=== PATIENT | female | born 1950 | race Caucasian/White ===

== ENCOUNTER 2016-07-14 13:42 | Emergency (ER) | payer MEDICARE, BC ==
[2016-07-15] MEDS ORDERED: NORCO1 TA2 PO (13:53)
[2016-07-15] MEDS ORDERED: ZOL50 PO (13:54)
[2016-07-15] MEDS ORDERED: ATEN50 PO (13:54)
[2016-07-15] MEDS ORDERED: ZOFRAN4 PO (13:54)
== END 2016-07-14 16:45 | disposition home or self-care (01) ==
LOC: ER 13:42
DX: S52.502A Unspecified fracture of the lower end of left radius, initial encounter for closed fracture (principal); I10 Essential (primary) hypertension; Z88.1 Allergy status to other antibiotic agents; W19.XXXA Unspecified fall, initial encounter
CPT/HCPCS: 73100-LT; 96374; 96375; 99284; J1170; J2405

== ENCOUNTER 2016-07-15 10:08 | Emergency (ER) | payer MEDICARE, BC ==
--- NOTE | ~2016-07-15 | HP ---
History And Physical [facility] [address] [place]. [address] NAME: KAVYA FISHER : 48 STATUS : DEP ER PAT#: [id number] AGE: 66 ADM/REG DATE : 07/15/16 MR#: [id number] REPORT SERV DATE: 07/16/16 DICTATED BY: JOHN BEAVER DATE: 07/15/16 REPORT STATUS : Draft TRANSCRIBED BY: MODAlicia DATE: 07/15/16 DATE OF ADMISSION: 07/15/2016 REASON: Left wrist fracture. 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 She was in her usual state of health until yesterday 07/14/2016. While helping the [facility] take down [place] flags and crosses for the festivities, she tripped and fell over a stack of classes landing backwards on an outstretched left wrist. She noted immediate pain and deformity of her wrist and was seen at [facility] where x-rays were taken showing an impacted and dorsally angulated distal radius fracture. She was placed in a sugar-tong splint and is to contact my office today to set up a followup appointment. However, overnight she started experiencing burning pain in the hand with numbness at the fracture site as well as shortness of breath. She has a history of right lower extremity DVT 4 weeks after a knee meniscal meniscectomy and this was complicated by a PE. She was brought to this hospital ER, where workup revealed no evidence of PE based on CTA. Because she was n.p.o. since this morning and I was available, I opted to see her in the ER and proceed with surgery. She is very thankful and by arrangements, her pain was greatly improved with the help of a regional block administered by the Anesthesia Department in the preop holding area. No previous injuries to her left wrist, and she does have a history of rheumatoid arthritis, but has been off Remicade now for several years and not had any flare up. PAST MEDICAL HISTORY: 1. Hypertension. 2. Mitral valve prolapse. 3. Mild GERD. 4. Rheumatoid arthritis, she has been off Remicade without any flare ups. PAST SURGICAL HISTORY: 1. Lumbar laminectomy, diskectomy, and fusion by Dr. Gaona in [place]. 2. Neck fusion. 3. Right knee meniscectomy complicated by right lower extremity DVT and PE four weeks later. 4. Hysterectomy and salpingectomy with appendectomy. 5. Tonsillectomy and adenoidectomy. 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 She is 34 years to her , [place]. No children. She drinks an occasional beer and gin and tonic. She denies tobacco or recreational drugs. FAMILY HISTORY: Noncontributory. REVIEW OF SYSTEMS: Some hand and base of thumb pain, some joint pain and spine pain, all in keeping with musculoskeletal symptoms of aging, otherwise no shortness of breath, fever, chills, and she History And Physical [address] [address] NAME: KAVYA FISHER : 48 STATUS : DEP ER PAT#: [id number] AGE: 66 ADM/REG DATE : 07/15/16 MR#: [id number] REPORT SERV DATE: 07/16/16 DICTATED BY: JOHN BEAVER DATE: 07/15/16 REPORT STATUS : Draft TRANSCRIBED BY: ESCOBAR DATE: 07/15/16 has not had any rheumatoid flare ups since being off Remicade last year. See past medical history, past surgical history, otherwise negative. ALLERGIES: SHE IS ALLERGIC TO MACROBID. PRESENT MEDICATIONS: Tenormin 50 mg daily, Zoloft 50 mg p.o. daily, hydrocodone 7.5/325 one p.o. q.6 hours p.r.n. severe pain, and Zofran 4 mg p.o. q.6 hours p.r.n. nausea. PHYSICAL EXAMINATION: GENERAL: Pleasant, cooperative, 66-year-old female, lying in bed, reported to be in much better condition as compared to that experienced an hour ago prior to her en bloc. She states that for the first time in 24 hours, she has had relief in symptoms. Appropriate mood and behavior. VITAL SIGNS: Height 5 feet 6 inches, weight 140 pounds, blood pressure 109/54, pulse 54, and SaO2 100% on room air. HEENT: Normocephalic, atraumatic. COR: Regular rate and rhythm without murmurs, rubs, gallops. LUNGS: Clear to auscultation. ABDOMEN: Soft, nontender. MUSCULOSKELETAL: The right shoulder, elbow, wrist, and all fingers with functional range of motion. The right thumb has some adduction deformity and minimal tenderness over the thumb CMC joint but negative grind test. Right hand is neurovascularly intact. LEFT UPPER EXTREMITY: Has had recent block on the arm, is insensate without motor function. She can barely move her shoulder and the arm is in a sugar-tong splint. Fingers are pink and viable but has no sensation. The sugar-tong splints was taken down. There is bruising in the wrist, but no open wounds. There is an obvious silver-fork deformity at the fracture site. The TLS spine has well-healed incisions. Both hips, knees, and ankles have no gross deformities. IMAGING: X-rays multiple views left wrist taken at [facility] yesterday, 07/14/2016 shows the distal radius metaphyseal fracture with impaction and dorsal angulation as well as slight dorsal translation. There was significant thumb CMC arthritic changes Eaton stage IV. IMPRESSION: 1. Left distal radius fracture sustained on 07/14/2016 with displacement. 2. History of rheumatoid arthritis. 3. Possible irritation to median nerve responsible for burning pain in wrist over the past 24 hours since fracture. PLAN: Possible options were discussed. I have offered Kavya surgery in the form of open reduction and internal fixation of the wrist fracture. This would include a volar plate and screws. The risk of infection, bleeding, worsening pain, nerve artery or tendon damage, , stroke, heart attack were all discussed. Alternative options to include closed reduction, splinting followed by monitors with x-rays and eventually placement in cast were discussed, but Kavya is not interested in following with nonsurgical treatment. History And Physical [address] [place]. [address] NAME: KAVYA FISHER : 48 STATUS : DEP [facility]#: [id number] AGE: 66 ADM/REG DATE : 07/15/16 MR#: [id number] REPORT SERV DATE: 07/16/16 DICTATED BY: JOHN BEAVER DATE: 07/15/16 REPORT STATUS : Draft TRANSCRIBED BY: ESCOBAR DATE: 07/15/16 Both Kavya and her , Osei had an opportunity to ask questions, and they were answered by me to her satisfaction. She wished to proceed with surgery and we will plan for this shortly. SANJEEV/ESCOBAR John Beaver M.D. / [id number]
--- NOTE | ~2016-07-15 | OP ---
Record Of Operation [facility] [address] [place]. [address] NAME: SARBJIT GALAN : 48 STATUS : DEP [facility]#: [id number] AGE: 66 ADM/REG DATE : 07/15/16 MR#: [id number] REPORT SERV DATE: 07/15/16 DICTATED BY: JOHN BEAVER DATE: 07/15/16 REPORT STATUS : Draft TRANSCRIBED BY: MODL DATE: 07/15/16 DATE OF PROCEDURE: 07/15/2016 PREOPERATIVE DIAGNOSIS: Left wrist distal radius impacted and dorsally angulated fracture from 07/14/2016. POSTOPERATIVE DIAGNOSIS: Left wrist distal radius impacted and dorsally angulated fracture from 07/14/2016. PROCEDURE: Open reduction and internal fixation of left wrist fracture (non intra-articular) using Acumed plate and screws. LIFE CARE PLANNER: Hernando Angel. ANESTHESIA: Regional block plus MAC. ESTIMATED BLOOD LOSS: 10 mL. IV FLUIDS: 500 crystalloid. COMPLICATIONS: None. DISPOSITION: Patient tolerated the procedure well, was brought to recovery room in stable condition. PROCEDURE NOTE: After regional block was administered by the Anesthesia Department in the preop holding area, the patient was brought to the operating room and placed in the supine position. After IV sedation was given, a pneumatic tourniquet was placed around the left proximal arm and left upper extremity distal to the tourniquet was prepped and draped in usual sterile manner. A surgical time-out was performed and all were in agreement. An Esmarch was then used to exsanguinate the extremity and tourniquet was inflated. A 15 blade scalpel was used to make a longitudinal incision starting at the volar wrist crease and directed proximally overlying the FCR tendon. After the incision was made, blunt and sharp dissection was carried out and the FCR tendon was identified and moved ulnarly to reveal the underlying superficial fascia of the arm. This fascia was incised revealing the fracture hematoma which was evacuated and care was taken to protect the neurovascular structures. Blood loss from the fracture hematoma was maximum at this point and afterwards the pronator quadratus muscle was noted to be damaged from the fracture. This muscle was released off the most radial aspect of the radius with a 15-blade scalpel and the fracture was identified. With the help of traction applied to the fingers and a [place]omb elevator placed in the fracture site, the fracture was reduced and then held in place with an Acumed plate and screws. The more proximal 3.5 mm screws were placed after first pre-drilling, measuring, and placing the appropriate length screws. More distally three locking 2.3 mm screws were placed after first pre-drilling, measuring, and placing the appropriate length screws. Excellent fixation, reduction, and stability was achieved. The wrist was put Record Of Operation [address] [address] NAME: SARBJIT GALAN : 48 STATUS : DEP PAT#: [id number] AGE: 66 ADM/REG DATE : 07/15/16 MR#: [id number] REPORT SERV DATE: 07/15/16 DICTATED BY: JOHN BEAVER DATE: 07/15/16 REPORT STATUS : Draft TRANSCRIBED BY: ESCOBAR DATE: 07/15/16 through range of motion and no other abnormalities were appreciated other than the thumb CMC arthritis. The wound was then irrigated and skin was closed with deep and running Monocryl suture. Steri-Strips, sterile dressing, a volar splint was applied. Tourniquet was released. The arm was placed in a sling. The patient was ready to be brought to recovery room having tolerated the procedure well. SANJEEV/ESCOBAR John Beaver M.D. / [id number]
[2016-07-15 10:24] LABS: BASOPHILS 0.3 %; BASOPHILS ABSOLUTE 0.02 10/3/uL (0.0-0.16); EOSINOPHILS 0.5 %; EOSINOPHILS ABSOLUTE 0.04 10/3/uL (0.0-0.53); ER CBC TAT 0 Hrs 08 Mins; HEMATOCRIT 38.4 % (36.0-48.0); IMMATURE GRANULOCYTES 0.6 %; IMMATURE GRANULOCYTES ABSOLUTE 0.05 10/3/uL (0.0-0.11); LYMPHOCYTES 17.4 %; LYMPHOCYTES ABSOLUTE 1.34 10/3/uL (0.67-4.30); MEAN CORPUS HGB CONC 33.9 g/dL (32.0-36.0); MEAN CORPUSCULAR HEMOGLOB 30.1 pg (26.0-34.0); MEAN CORPUSCULAR VOLUME 88.9 fL (80-100); MEAN PLATELET VOLUME 11.7 fL (9.2-13.0); MONOCYTES 7.5 %; MONOCYTES ABSOLUTE 0.58 10/3/uL (0.21-1.20); NEUTROPHILS 73.7 %; NEUTROPHILS ABSOLUTE 5.69 10/3/uL (2.02-8.40); PLATELET COUNT 121 10/3/uL (150-400); RBC DISTRIBUTION WIDTH 14.4 % (12.0-16.0); RED CELL COUNT 4.32 10/6/uL (4.0-5.6); WHITE BLOOD CELLS 7.7 10/3/uL (4.5-10.5)
[2016-07-15 10:28] LABS: MANUAL DIFF NO %
[2016-07-15 10:36] LABS: A/G RATIO 1.4 (0.7-1.9); ALBUMIN 3.8 G/DL (3.5-5.0); ALKALINE PHOSPHATASE 136 U/L (45-117); BUN (BLOOD UREA NITROGEN) 12 MG/DL (6-23); CALCIUM, SERUM 8.9 MG/DL (8.5-10.4); CHLORIDE, SERUM 105 MMOL/L (96-112); CO2 (CARBON DIOXIDE) 24 MMOL/L (24-34); GFR AFRICAN AMERICAN 104 ML/MIN (>=60); GFR NON AFRICAN AMERICAN 90 ML/MIN (>=60); GLOBULIN 2.7 G/DL (2.5-4.1); GLUCOSE, SERUM 107 MG/DL (60-99); SGPT(ALT) 50 U/L (5-65); SODIUM, SERUM 139 MMOL/L (135-148); TOTAL BILIRUBIN 1.5 MG/DL (0-1.2); TOTAL PROTEIN 6.5 G/DL (6.0-8.5)
[2016-07-15 10:40] LABS: POTASSIUM, SERUM 4.4 MMOL/L (3.5-5.3)
[2016-07-15 10:41] LABS: SGOT(AST) 74 U/L (5-40)
[2016-07-15 11:17] LABS: PROTIME (NOT ORD) 13.3 SEC (12.0-14.5)
[2016-07-15 11:19] LABS: D-DIMER QUANTITATIVE 0.53 ug/mLFEU (< 0.50)
[2016-07-15] MEDS ORDERED: NORCO1 TA2 PO (13:53)
[2016-07-15] MEDS ORDERED: ZOL50 PO (13:54)
[2016-07-15] MEDS ORDERED: ZOFRAN4 PO (13:54)
[2016-07-15] MEDS ORDERED: ATEN50 PO (13:54)
== END 2016-07-15 15:38 | disposition home or self-care (01) ==
LOC: ER 10:08
PROVIDERS: Orthopaedic Surgery Hand Surgery; Physician Assistant
PROC: 0PSJ04Z Reposition Left Radius with Internal Fixation Device, Open Approach (ICD-10-PCS; principal; 2016-07-15 16:15)
DX: S52.532A Colles' fracture of left radius, initial encounter for closed fracture (principal); R06.00 Dyspnea, unspecified; I10 Essential (primary) hypertension; F32.9 Major depressive disorder, single episode, unspecified; Z88.8 Allergy status to other drugs, medicaments and biological substances; Z79.899 Other long term (current) drug therapy; W01.0XXD Fall on same level from slipping, tripping and stumbling without subsequent striking against object, subsequent encounter
CPT/HCPCS: 71020; 71275; 76000; 80053; 85025; 85379; 85610; 85730; 93005; 96374; 99285; A9270-GY; C1713; J0690; J2250; J2405; J2795; J3010; Q9967